=== PATIENT | female | born 1955 | race Caucasian/White ===

== ENCOUNTER 2017-07-06 10:49 | Emergency (ER) | payer OTHER ==
--- NOTE | 2017-07-06 11:55 | EDM.PDOC ---
ED HPI GENERAL MEDICAL PROBLEM - General Chief Complaint: Abdominal Pain Stated Complaint: ABDOMINAL PAIN Time Seen by Provider: 07/06/17 11:35 Source of Information: Reports: Patient History Limitations: Reports: No Limitations - History of Present Illness INITIAL COMMENTS - FREE TEXT/NARRATIVE: 61-year-old female with persistent abdominal pain for the past 2 weeks despite a course of antibiotics for "diverticulitis". Pain is upper abdomen, no radiation and waxes and wanes. She's had no fever or chills. No nausea or vomiting. This morning she had an episode of fairly intense pain so came in, it has improved. She has a history of a cholecystectomy and appendectomy. Onset: Other (Several weeks ago) Location: Reports: Abdomen Quality: Reports: Ache, Burning Severity: Moderate Improves with: Reports: None Worsens with: Reports: None Associated Symptoms: Reports: No Other Symptoms Abdominal Pain Score (Numeric/FACES): 6 - Related Data Allergies Allergy/AdvReac Type Severity Reaction Status Date / Time Iodinated Contrast- Oral and Allergy Hives Verified 07/06/17 12:09 IV Dye Penicillins Allergy Stomach Verified 07/06/17 11:10 Upset codeine Allergy Vomiting Uncoded 07/06/17 11:10 thimersol Allergy Hives Uncoded 07/06/17 11:10 Home Meds: Home Meds NK [No Known Home Meds] 10/10/14 [History] Past Medical History HEENT History: Reports: Impaired Vision Cardiovascular History: Reports: Hypertension Gastrointestinal History: Reports: Colon Polyp, Diverticulosis 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: Reports: Endometriosis Musculoskeletal History: Reports: Arthritis, Fracture Neurological History: Reports: Concussion Oncologic (Cancer) History: Reports: Breast Dermatologic History: Reports: Psoriasis - Infectious Disease History Infectious Disease History: Reports: Chicken Pox, Measles, Mumps - Past Surgical History GI Surgical History: Reports: Appendectomy, Cholecystectomy, Colonoscopy, Polypectomy Female Surgical History: Reports: Hysterectomy, Oophorectomy Oncologic Surgical History: Reports: Lumpectomy, Mastectomy Other Oncologic Surgeries/Procedures: right side Social & Family History - Tobacco Use Smoking Status *Q: Never Smoker Second Hand Smoke Exposure: No - Caffeine Use Caffeine Use: Reports: Tea - Alcohol Use Days Per Week of Alcohol Use: 0 - Recreational Drug Use Recreational Drug Use: No ED ROS GENERAL - Review of Systems Review Of Systems: See Below Constitutional: Denies: Fever, Chills HEENT: Reports: No Symptoms Respiratory: Denies: Shortness of Breath, Cough Cardiovascular: Denies: Chest Pain GI/Abdominal: Reports: Abdominal Pain. Denies: Diarrhea, Nausea, Vomiting : Reports: No Symptoms Skin: Reports: No Symptoms Neurological: Denies: Headache Psychiatric: Reports: No Symptoms ED EXAM, GI/ABD - Physical Exam Exam: See Below Exam Limited By: No Limitations General Appearance: Alert, No Apparent Distress Eyes: Bilateral: Normal Appearance (Normal hydration, no jaundice) Respiratory/Chest: No Respiratory Distress, Lungs Clear Cardiovascular: Regular Rate, Rhythm GI/Abdominal Exam: Normal Bowel Sounds, Soft, Tender (Some tenderness to palpation across the upper abdomen, especially just to the left of the epigastric area but no guarding) Neurological: Alert, Oriented Psychiatric: Normal Affect, Normal Mood Skin Exam: Warm, Dry Course - Vital Signs Last Recorded V/S: Last Vital Signs Temp 98.8 F 07/06/17 11:19 Pulse 50 L 07/06/17 13:57 Resp 16 07/06/17 13:57 BP 134/66 07/06/17 13:57 Pulse Ox 97 07/06/17 13:57 - Orders/Labs/Meds Labs: Laboratory Tests 07/06/17 07/06/17 Range/Units 11:52 11:52 WBC 8.0 (4.5-11.0) K/uL RBC 4.61 (3.30-5.50) M/uL Hgb 14.0 (12.0-15.0) g/dL Hct 41.6 (36.0-48.0) % MCV 90 (80-98) fL MCH 30 (27-31) pg MCHC 34 (32-36) % Plt Count 253 (150-400) K/uL Neut % (Auto) 58 (36-66) % Lymph % (Auto) 30 (24-44) % [place] % (Auto) 8 H (2-6) % Eos % (Auto) 1 L (2-4) % Baso % (Auto) 3 H (0-1) % Sodium 143 (140-148) mmol/L Potassium 4.0 (3.6-5.2) mmol/L Chloride 106 (100-108) mmol/L Carbon Dioxide 30 (21-32) mmol/L Anion Gap 7.4 (5.0-14.0) mmol/L BUN 13 (7-18) mg/dL Creatinine 0.9 (0.6-1.0) mg/dL Est Cr Clr Drug Dosing 46.55 mL/min Estimated GFR (MDRD) > 60 (>60) Glucose 95 (74-106) mg/dL Calcium 9.0 (8.5-10.1) mg/dL Total Bilirubin 0.4 (0.2-1.0) mg/dL AST 29 (15-37) U/L ALT 42 (12-78) U/L Alkaline Phosphatase 67 (46-116) U/L Total Protein 8.1 (6.4-8.2) g/dL Albumin 3.6 (3.4-5.0) g/dL Globulin 4.5 H (2.3-3.5) g/dL Albumin/Globulin Ratio 0.8 L (1.2-2.2) Amylase 77 (25-115) U/L Lipase 93 (73-393) U/L - Re-Assessments/Exams Free Text/Narrative Re-Assessment/Exam: 07/08/17 09:06 CBC, CMP, amylase and lipase were obtained. Intent was to follow with a CT of the abdomen. 07/08/17 09:06 Labs were very reassuring, all normal. A CT of the abdomen and pelvis without contrast due to passed iodine allergy was normal other than post surgical changes. The patient was started on Prilosec daily and encouraged to take for 1- 2 weeks and return anytime sooner if worsening or concerns. No further antibiotics are necessary, she may be having side effects to the antibiotic. Departure - Departure Time of Disposition: 14:07 Disposition: Home, Self-Care 01 Condition: Good Clinical Impression: Abdominal pain Qualifiers: Abdominal location: upper abdomen, unspecified Qualified Code(s): R10.10 - Upper abdominal pain, unspecified - Discharge Information Instructions: Abdominal Pain, Adult, [id number] Referrals: Kaitlin Knapp PA [Primary Care Provider] - Forms: ED Department Discharge Care Plan Goals: Daily omeprazole, starting with 40 mg on the first 3 days then 20 mg a day may help with your abdominal pain. No further antibiotics are needed. Return anytime if worsening or concerns.
[2017-07-06 13:58] VITALS: BP 134/66
== END 2017-07-06 14:09 | disposition home or self-care (01) ==
LOC: JP.ED 10:49
DX: R10.10 Upper abdominal pain, unspecified (principal); I10 Essential (primary) hypertension; M19.90 Unspecified osteoarthritis, unspecified site; Z85.3 Personal history of malignant neoplasm of breast; L40.9 Psoriasis, unspecified; Z90.49 Acquired absence of other specified parts of digestive tract; Z90.710 Acquired absence of both cervix and uterus; Z88.0 Allergy status to penicillin; Z88.8 Allergy status to other drugs, medicaments and biological substances; Z91.041 Radiographic dye allergy status
CPT/HCPCS: 36415; 74176; 80053; 82150; 83690; 85025; 99284-25

== ENCOUNTER 2019-05-30 21:54 | Emergency (ER) | payer BC ==
--- NOTE | 2019-05-30 23:16 | EDM.PDOC ---
ED HPI GENERAL MEDICAL PROBLEM - General Chief Complaint: General Stated Complaint: BLOOD CLOT Time Seen by Provider: 05/30/19 23:04 Source of Information: Reports: Patient, Old Records, RN Notes Reviewed History Limitations: Reports: No Limitations - History of Present Illness INITIAL COMMENTS - FREE TEXT/NARRATIVE: 63-year-old female presents emergency department today with complaint of pain in her left lower extremity, she states it just came on today she does have a history of superficial thrombophlebitis no history of PE or DVT but she is concerned Left Lower Leg Pain Score (Numeric/FACES): 5 - Related Data Allergies Allergy/AdvReac Type Severity Reaction Status Date / Time bee venom protein (honey bee) Allergy Anaphylactic Verified 10/06/18 03:34 Shock Iodinated Contrast Media Allergy Hives Verified 10/06/18 03:34 [Iodinated Contrast- Oral and IV Dye] Penicillins Allergy Stomach Verified 10/06/18 03:34 Upset codeine Allergy Vomiting Uncoded 10/06/18 03:34 thimersol Allergy Hives Uncoded 10/06/18 03:34 Home Meds: Home Meds Alclometasone Dipropionate 15 gm TP BID PRN 10/06/18 [History] Ascorbic Acid 500 mg PO DAILY 10/06/18 [History] Cholecalciferol (Vitamin D3) [Vitamin D3] 2,000 unit PO DAILY 10/06/18 [History] Fish Oil/[place]-3 Fatty Acids [Fish Oil 1,000 MG] 1,000 mg PO DAILY 10/06/18 [ History] Pyridoxine HCl [Vitamin B-6] 100 mg PO DAILY 10/06/18 [History] Ubidecarenone [Co Q-10] 10 mg PO DAILY 10/06/18 [History] Ascorbate Calcium [Vitamin C] 500 mg PO BID 05/30/19 [History] Past Medical History HEENT History: Reports: Impaired Vision Cardiovascular History: Reports: Hypertension Gastrointestinal History: Reports: Colon Polyp, Diverticulosis Genitourinary History: Reports: Other (See Below) Other Genitourinary History: renal artery stenosis, pt does not recall which side 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: Endometriosis Musculoskeletal History: Reports: Arthritis, Fracture Neurological History: Reports: Concussion Oncologic (Cancer) History: Reports: Breast Dermatologic History: Reports: Psoriasis Other Dermatologic History: plebitis - Infectious Disease History Infectious Disease History: Reports: Chicken Pox, Measles, Mumps, Shingles - Past Surgical History GI Surgical History: Reports: Appendectomy, Cholecystectomy, Colonoscopy, Polypectomy Female Surgical History: Reports: Hysterectomy, Mastectomy, Oophorectomy, Other (See Below) Other Female Surgeries/Procedures: Right sided mastectomy 2000 Oncologic Surgical History: Reports: Lumpectomy, Mastectomy Other Oncologic Surgeries/Procedures: right side Social & Family History - Tobacco Use Smoking Status *Q: Never Smoker - Caffeine Use Caffeine Use: Reports: Coffee, Tea Caffeine Use Comment: one cup of coffee a couple times per week. Occasional tea. - Recreational Drug Use Recreational Drug Use: No ED ROS GENERAL - Review of Systems Review Of Systems: See Below Constitutional: Reports: No Symptoms HEENT: Reports: No Symptoms Respiratory: Reports: No Symptoms Cardiovascular: Reports: No Symptoms Musculoskeletal: Reports: Leg Pain ED EXAM, GENERAL - Physical Exam Exam: See Below Free Text/Narrative:: Examination the left lower leg she does have a hard cord anterior aspect consistent with superficial thrombophlebitis Exam Limited By: No Limitations General Appearance: Alert, WD/WN, No Apparent Distress Respiratory/Chest: No Respiratory Distress, Lungs Clear, Normal Breath Sounds, No Accessory Muscle Use, Chest Non-Tender Cardiovascular: Regular Rate, Rhythm, No Murmur Course - Vital Signs Last Recorded V/S: Last Vital Signs Temp 97.4 F 05/30/19 22:41 Pulse 57 L 05/30/19 22:41 Resp 14 05/30/19 22:41 BP 181/59 H 05/30/19 22:41 Pulse Ox 95 05/30/19 22:41 - Orders/Labs/Meds Orders: Active Orders 24 hr Category Date Time Status VL Duplex Lwr Ext Veins Ltd Lt [US] Stat Exams 05/30/19 23:13 Ordered Departure - Departure Time of Disposition: 00:04 Disposition: Home, Self-Care 01 Condition: Fair Clinical Impression: Superficial vein thrombosis - Discharge Information Referrals: Kaitlin Knapp PA [Primary Care Provider] - Forms: ED Department Discharge Additional Instructions: Use compression, ibuprofen and elevation as needed, Please followup with your primary care provider in 3-5 days if not better, please call return to the emergency department with worsening of symptoms. - My Orders Last 24 Hours: My Active Orders 05/30/19 23:13 VL Duplex Lwr Ext Veins Ltd Lt [US] Stat - Assessment/Plan Last 24 Hours: My Active Orders 05/30/19 23:13 VL Duplex Lwr Ext Veins Ltd Lt [US] Stat Plan: Assessment Acuity = acute Site and laterality = superficial thrombophlebitis left lower extremity Etiology = unknown etiology Manifestations = none Location of injury = Home Lab values = ultrasound was negative for any DVT or extension of the superficial thrombus Plan Supportive care elevation and compression pain control with NSAIDs follow-up primary care 3-5 days if not better This note was dictated using [employer] voice recognition software please call with any questions on syntax or grammar.
--- NOTE | 2019-05-31 00:12 | CRLUS ---
INDICATION: Left leg pain TECHNIQUE: Ultrasound venous duplex lower left extremity. Compression venous exam was performed using valentine-scale, color Doppler, and spectral Doppler analysis. COMPARISON: None FINDINGS: Sonographic imaging demonstrates the left common femoral, deep femoral, superficial femoral, popliteal, posterior tibial and greater saphenous veins to be fully compressible with normal color Doppler blood flow. IMPRESSION: Normal left lower extremity venous ultrasound, no sign of deep venous thrombosis. Dictated by Paula Arnett MD @ May 31 2019 12:11AM Signed by Dr. Paula Arnett @ May 31 2019 12:11AM
[2019-05-31 00:29] VITALS: BP 152/57; PULSE 46
== END 2019-05-31 00:29 | disposition home or self-care (01) ==
LOC: JP.ED 21:54
DX: I82.812 Embolism and thrombosis of superficial veins of left lower extremity (principal); I10 Essential (primary) hypertension; Z91.030 Bee allergy status; Z88.0 Allergy status to penicillin; Z88.8 Allergy status to other drugs, medicaments and biological substances; Z88.5 Allergy status to narcotic agent; Z79.899 Other long term (current) drug therapy; M19.90 Unspecified osteoarthritis, unspecified site
CPT/HCPCS: 93971-LT; 99283-25

== ENCOUNTER 2019-11-10 21:48 | Emergency (ER) | payer BC, MEDICARE ==
[2019-11-10] MEDS ORDERED: Acetaminophen 325 MG Tab PO ONE (22:33)
--- NOTE | 2019-11-10 22:37 | EDM.PDOC ---
ED HPI GENERAL MEDICAL PROBLEM - General Chief Complaint: Cardiovascular Problem Stated Complaint: HIGH BLOOD PRESSURE Time Seen by Provider: 11/10/19 22:25 Source of Information: Reports: Patient, RN Notes Reviewed History Limitations: Reports: No Limitations - History of Present Illness INITIAL COMMENTS - FREE TEXT/NARRATIVE: 64-year-old female presents emergency department with a complaint of elevated blood pressure she has been monitoring her blood pressure now for couple weeks has elevated blood pressures up into the 160s but today it got into the 180s she does complain of a headache and some pain behind her eye however both the symptoms were there prior to when she took her blood pressure when it was elevated. No nausea vomiting shortness of breath or chest pain - Related Data Allergies Allergy/AdvReac Type Severity Reaction Status Date / Time bee venom protein (honey bee) Allergy Anaphylactic Verified 11/10/19 22:09 Shock Iodinated Contrast Media Allergy Hives Verified 11/10/19 22:09 [Iodinated Contrast- Oral and IV Dye] Penicillins Allergy Stomach Verified 11/10/19 22:09 Upset codeine Allergy Vomiting Uncoded 11/10/19 22:09 thimersol Allergy Hives Uncoded 11/10/19 22:09 Home Meds: Home Meds Alclometasone Dipropionate 15 gm TP BID PRN 10/06/18 [History] Ascorbic Acid 500 mg PO DAILY 10/06/18 [History] Cholecalciferol (Vitamin D3) [Vitamin D3] 2,000 unit PO DAILY 10/06/18 [History] Fish Oil/[place]-3 Fatty Acids [Fish Oil 1,000 MG] 1,000 mg PO DAILY 10/06/18 [ History] Pyridoxine HCl (Vitamin B6) [Vitamin B-6] 100 mg PO DAILY 10/06/18 [History] Ubidecarenone [Co Q-10] 10 mg PO DAILY 10/06/18 [History] Ascorbate Calcium [Vitamin C] 500 mg PO BID 05/30/19 [History] lisinopriL [Lisinopril] 10 mg PO DAILY #15 tablet 11/11/19 [Rx] Past Medical History HEENT History: Reports: Impaired Vision Cardiovascular History: Reports: Hypertension Gastrointestinal History: Reports: Colon Polyp, Diverticulosis Genitourinary History: Reports: Other (See Below) Other Genitourinary History: renal artery stenosis, pt does not recall which side 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 Musculoskeletal History: Reports: Arthritis, Fracture Neurological History: Reports: Concussion Oncologic (Cancer) History: Reports: Breast Dermatologic History: Reports: Psoriasis Other Dermatologic History: plebitis - Infectious Disease History Infectious Disease History: Reports: Chicken Pox, Measles, Mumps, Shingles - Past Surgical History GI Surgical History: Reports: Appendectomy, Cholecystectomy, Colonoscopy, Polypectomy Female Surgical History: Reports: Hysterectomy, Mastectomy, Oophorectomy, Other (See Below) Other Female Surgeries/Procedures: Right sided mastectomy 2000 Oncologic Surgical History: Reports: Lumpectomy, Mastectomy Other Oncologic Surgeries/Procedures: right side Social & Family History - Tobacco Use Smoking Status *Q: Never Smoker - Caffeine Use Caffeine Use: Reports: Coffee, Tea Caffeine Use Comment: one cup of coffee a couple times per week. Occasional tea. ED ROS GENERAL - Review of Systems Review Of Systems: See Below Constitutional: Reports: No Symptoms HEENT: Reports: Eye Pain Respiratory: Reports: No Symptoms Cardiovascular: Reports: No Symptoms GI/Abdominal: Reports: No Symptoms Neurological: Reports: Headache ED EXAM, GENERAL - Physical Exam Exam: See Below Exam Limited By: No Limitations General Appearance: Alert, WD/WN, No Apparent Distress Eye Exam: Bilateral Eye: Normal Inspection Respiratory/Chest: No Respiratory Distress, Lungs Clear, Normal Breath Sounds, No Accessory Muscle Use, Chest Non-Tender Cardiovascular: Regular Rate, Rhythm, No Murmur GI/Abdominal: Soft, Non-Tender Extremities: Normal Inspection, No Pedal Edema Course - Vital Signs Last Recorded V/S: Last Vital Signs Temp 97.0 F 11/10/19 22:06 Pulse 52 L 11/11/19 00:29 Resp 12 11/11/19 00:29 BP 170/67 H 11/11/19 00:29 Pulse Ox 98 11/11/19 00:29 - Orders/Labs/Meds Labs: Laboratory Tests 11/10/19 11/10/19 11/10/19 Range/Units 22:47 22:47 22:47 WBC 13.1 H (4.5-11.0) K/uL RBC 4.68 (3.30-5.50) M/uL Hgb 14.4 (12.0-15.0) g/dL Hct 43.3 (36.0-48.0) % MCV 93 (80-98) fL MCH 31 (27-31) pg MCHC 33 (32-36) % Plt Count 244 (150-400) K/uL Neut % (Auto) 74 H (36-66) % Lymph % (Auto) 17 L (24-44) % [place] % (Auto) 8 H (2-6) % Eos % (Auto) 1 L (2-4) % Baso % (Auto) 0 (0-1) % Sodium 143 (140-148) mmol/L Potassium 4.1 (3.6-5.2) mmol/L Chloride 105 (100-108) mmol/L Carbon Dioxide 28 (21-32) mmol/L Anion Gap 9.8 (5.0-14.0) mmol/L BUN 13 (7-18) mg/dL Creatinine 0.9 (0.6-1.0) mg/dL Est Cr Clr Drug Dosing 57.26 mL/min Estimated GFR (MDRD) > 60 (>60) Glucose 100 (74-106) mg/dL Calcium 9.2 (8.5-10.1) mg/dL Total Bilirubin 0.5 (0.2-1.0) mg/dL AST 24 (15-37) U/L ALT 41 (12-78) U/L Alkaline Phosphatase 92 (46-116) U/L Troponin I < 0.017 (0.000-0.056) ng/mL Total Protein 7.9 (6.4-8.2) g/dL Albumin 3.8 (3.4-5.0) g/dL Globulin 4.1 H (2.3-3.5) g/dL Albumin/Globulin Ratio 0.9 L (1.2-2.2) Lipase 79 (73-393) U/L Urine Color (YELLOW) Urine Appearance (CLEAR) Urine pH (5.0-8.0) Ur Specific [place] (1.008-1.030) Urine Protein (NEGATIVE) mg/dL Urine Glucose (UA) (NEGATIVE) mg/dL Urine Ketones (NEGATIVE) mg/dL Urine Occult Blood (NEGATIVE) Urine Nitrite (NEGATIVE) Urine Bilirubin (NEGATIVE) Urine Urobilinogen (0.2-1.0) EU/dL Ur Leukocyte Esterase (NEGATIVE) Urine RBC (0-5) Urine WBC (0-5) Ur Epithelial Cells Amorphous Sediment Urine Bacteria Urine Mucus 11/10/19 Range/Units 22:49 WBC (4.5-11.0) K/uL RBC (3.30-5.50) M/uL Hgb (12.0-15.0) g/dL Hct (36.0-48.0) % MCV (80-98) fL MCH (27-31) pg MCHC (32-36) % Plt Count (150-400) K/uL Neut % (Auto) (36-66) % Lymph % (Auto) (24-44) % [place] % (Auto) (2-6) % Eos % (Auto) (2-4) % Baso % (Auto) (0-1) % Sodium (140-148) mmol/L Potassium (3.6-5.2) mmol/L Chloride (100-108) mmol/L Carbon Dioxide (21-32) mmol/L Anion Gap (5.0-14.0) mmol/L BUN (7-18) mg/dL Creatinine (0.6-1.0) mg/dL Est Cr Clr Drug Dosing mL/min Estimated GFR (MDRD) (>60) Glucose (74-106) mg/dL Calcium (8.5-10.1) mg/dL Total Bilirubin (0.2-1.0) mg/dL AST (15-37) U/L ALT (12-78) U/L Alkaline Phosphatase (46-116) U/L Troponin I (0.000-0.056) ng/mL Total Protein (6.4-8.2) g/dL Albumin (3.4-5.0) g/dL Globulin (2.3-3.5) g/dL Albumin/Globulin Ratio (1.2-2.2) Lipase (73-393) U/L Urine Color Yellow (YELLOW) Urine Appearance Clear (CLEAR) Urine pH 5.5 (5.0-8.0) Ur Specific [place] 1.020 (1.008-1.030) Urine Protein Negative (NEGATIVE) mg/dL Urine Glucose (UA) Negative (NEGATIVE) mg/dL Urine Ketones Negative (NEGATIVE) mg/dL Urine Occult Blood Negative (NEGATIVE) Urine Nitrite Negative (NEGATIVE) Urine Bilirubin Negative (NEGATIVE) Urine Urobilinogen 0.2 (0.2-1.0) EU/dL Ur Leukocyte Esterase Negative (NEGATIVE) Urine RBC 0-5 (0-5) Urine WBC 0-5 (0-5) Ur Epithelial Cells Rare Amorphous Sediment Not seen Urine Bacteria Not seen Urine Mucus Not seen Meds: Medications Discontinued Medications Generic Name Dose Route Start Last Admin Trade Name Kristina PRN Reason Stop Dose Admin Acetaminophen 650 mg 11/10/19 22:33 11/10/19 22:41 Tylenol PO 11/10/19 22:34 650 mg NOW ONE Administration Lisinopril 10 mg 11/10/19 23:39 11/11/19 00:07 Prinivil PO 11/10/19 23:40 10 mg ONETIME ONE Administration Departure - Departure Time of Disposition: 00:41 Disposition: Home, Self-Care 01 Condition: Fair Clinical Impression: Hypertension Qualifiers: Hypertension type: essential hypertension Qualified Code(s): I10 - Essential ( primary) hypertension Instructions: DASH Eating Plan, Hypertension, [id number] Referrals: Kaitlin Knapp PA [Primary Care Provider] - Forms: ED Department Discharge Additional Instructions: Take the lisinopril 1 tablet once a day, record your blood pressure once a day at different times keep your follow-up appointment with your primary care call or return to the emergency department with worsening of symptoms Sepsis Event Note - Evaluation Sepsis Screening Result: No Definite Risk - Focused Exam Vital Signs: Vital Signs Temp Pulse Resp BP BP Pulse Ox 11/11/19 00:29 52 L 12 170/67 H 98 11/11/19 00:07 155/60 H 11/10/19 23:02 55 L 153/64 H 11/10/19 22:30 60 164/77 H 11/10/19 22:06 97.0 F 53 L 14 164/70 H 99 11/10/19 22:01 96.4 F 60 16 179/69 H 98 Date Exam was Performed: 11/11/19 Time Exam was Performed: 00:39 - Assessment/Plan Plan: Assessment Acuity = acute Site and laterality = essential hypertension Etiology = unknown Manifestations = none Location of injury = Home Lab values = CBC, CMP unremarkable Plan She was provided 10 mg lisinopril while in the emergency department her blood pressure did respond however she is very focused on the monitor blood pressure will return to elevated levels, faxed 15 tablets over to [facility] she has a follow-up appointment with her primary care next week she is going to do a blood pressure journal This note was dictated using [employer] voice recognition software please call with any questions on syntax or grammar.
[2019-11-10] MEDS ORDERED: Lisinopril 10 MG Tab PO ONE (23:39)
[2019-11-11 01:05] VITALS: BP 151/57; PULSE 55
== END 2019-11-11 00:58 | disposition home or self-care (01) ==
LOC: JP.ED 21:48
DX: I10 Essential (primary) hypertension (principal); Z88.0 Allergy status to penicillin; Z88.5 Allergy status to narcotic agent; Z91.041 Radiographic dye allergy status; Z91.030 Bee allergy status; Z88.8 Allergy status to other drugs, medicaments and biological substances
CPT/HCPCS: 36415; 80053; 81001; 83690; 84484; 85025; 99284; A9270